=== PATIENT | female | born 1965 | race Caucasian/White ===

== ENCOUNTER → 2016-11-01 | Outpatient (CLI) | payer OTHER ==
[~2016-11-01] MED LIST: DEPA500T3 PO; DIVA500T3 PO; GABA300C5 PO; MULTCHW27 PO
[2016-11-01 08:26] LABS: HEMATOCRIT 39.2 % (35.0-46.0); MEAN CORPUSCULAR HEMOGLOBIN 23.9 PG (27.0-34.0); MEAN CORPUSCULAR HGB CONC 31.5 % (32.0-36.0); PLATELET COUNT 274 TH/MM3 (150-450); RED BLOOD COUNT 5.16 MIL/MM3 (4.00-5.30); RED CELL DISTRIBUTION WIDTH 16.6 % (11.6-17.2); REVIEW FLAG FINAL; WHITE BLOOD COUNT 8.6 TH/MM3 (4.0-11.0)
[2016-11-01 08:57] LABS: ANION GAP 7 MEQ/L (5-15); AST (GOT) 16 U/L (15-37); BICARBONATE 29.9 MEQ/L (21.0-32.0); BLOOD UREA NITROGEN 15 MG/DL (7-18); CHLORIDE 102 MEQ/L (98-107); GLOMERULAR FILTRATION RATE 68 ML/MIN (>89); GLUCOSE,FASTING 100 MG/DL (74-99); POTASSIUM 4.2 MEQ/L (3.5-5.1); SODIUM (NA) 139 MEQ/L (136-145)
[2016-11-01 09:06] LABS: ALKALINE PHOSPHATASE 79 U/L (45-117); ALT (GPT) 29 U/L (10-53); HDL CHOLESTEROL 50.4 MG/DL (40.0-60.0); LDL CHOLESTEROL 99 MG/DL (0-99); TOTAL BILIRUBIN ADULT 0.3 MG/DL (0.2-1.0)
== END ==
LOC: CLAB 08:03
PROVIDERS: ATTEND Nurse Practitioner Family
DX: R51 Headache (principal); E66.9 Obesity, unspecified
CPT/HCPCS: 36415; 80053; 80061; 80164; 84443; 85027